=== PATIENT | male | born 1995 | race Caucasian/White ===

== ENCOUNTER 2018-03-09 18:54 | Emergency (ER) | payer SELFPAY ==
[~2018-03-09] VITALS: Ht 177 cm; Wt 78.0 kg
[2018-03-09 18:57] VITALS: BP 124/85; PULSE 55; TEMP 98.1
== END 2018-03-09 19:52 | disposition home or self-care (01) ==
LOC: COL.ER 18:54
DX: S93.402A Sprain of unspecified ligament of left ankle, initial encounter (principal); X50.0XXA Overexertion from strenuous movement or load, initial encounter; Y92.39 Other specified sports and athletic area as the place of occurrence of the external cause